=== PATIENT | male | born 1960 | race Caucasian/White ===

== ENCOUNTER 2021-08-29 20:09 | Emergency (ER) | payer OTHER, SELFPAY ==
[2021-08-29 20:21] VITALS: BP 158/95; PULSE 71; RESP 17; TEMP 37.2; O2SAT 99; BMI 30.1
--- NOTE | 2021-08-29 20:41 | DI.RAD.S_ITS ---
PROCEDURE: XR FINGER LT MIN 2V INDICATIONS: cut with barbed wire TECHNIQUE: AP hand, 2 views of the 5th finger(s) acquired. COMPARISON: None. FINDINGS: Bones: No fractures or dislocations. No suspicious bony lesions. Soft tissues: No suspicious soft tissue calcifications. IMPRESSION: No acute fracture. No osseous lesion. If symptoms and/or clinical suspicion for pathology persist, further assessment with repeat, or advanced imaging (e.g., CT, MRI, or bone scan) may be helpful for further assessment. Dictated by: Nicole Man M.D. on 08/29/2021 at 21:09 Approved by: Nicole Man M.D. on 08/29/2021 at 21:10
[2021-08-29] MEDS: TET,DIPH,PERTUSS(ACELL),VAC/PF 0.5 ML SYRINGE IM (22:22)
--- NOTE | 2021-08-29 22:51 | ED.WOUNDLAC ---
HPI - Wound/Laceration General Chief Complaint: Wound/Laceration Stated Complaint: left hand pinky cut (barbwire) Time Seen by Provider: 08/29/21 20:27 Source: patient Mode of arrival: Ambulatory History of Present Illness HPI narrative: Patient is a 61-year-old male who is here for evaluation of injury that he sustained to his left little finger. Patient states that he was working on a wall that had randal wire on top of. He states that he lost his footing and fell back and reached out to try to stop his fall and cut his little finger on the randal wire. He is unsure of his last tetanus shot. He reports no other injuries from the event. He did wash it out prior to arrival. Initially thought it was just a small cut but then as time went on he noticed that it actually extended his entire little finger. He reports no neurologic changes. He is able to flex and extend his finger without discomfort. Related Data Previous Rx's Medication Instructions Recorded cephalexin 500 mg capsule 500 mg PO QID 5 Days #20 cap 08/29/21 Allergies Allergy/AdvReac Type Severity Reaction Status Date / Time No Known Drug Allergies Allergy Verified 08/29/21 20:21 Review of Systems Musculoskeletal Musculoskeletal: Reports system reviewed and no additional complaints, except as documented and Reports as per HPI Integumentary/Breasts Skin/Breast: Reports system reviewed and no additional complaints, except as documented and Reports as per HPI Neurologic Neurologic: Reports system reviewed and no additional complaints, except as documented and Reports as per HPI Hematologic/Lymphatic On Anticoagulants: No Patient History Social History Smoking Status: Never smoker Smoking Status: Never smoker Substance Use Type: does not use Exam Initial Vital Signs Initial Vital Signs: Vital Signs Temperature 98.9 F 08/29/21 20:21 Pulse Rate 71 08/29/21 20:21 Respiratory Rate 17 08/29/21 20:21 Blood Pressure 158/95 H 08/29/21 20:21 Pulse Oximetry 99 08/29/21 20:21 HENMT Head: normal to inspection and normocephalic Skin Other: Patient with a irregular laceration located on the volar aspect of the left little finger. It extends from just distal to the MCP joint across the PIP and the IP joint out to the tip of the finger. There is no nail involvement. Neuro Sensory Exam: no sensory deficits noted Extrem Other: Patient is able to flex and extend had the D IP and PIP and MCP joint both active and passive against resistance left little finger Procedures Laceration Repair Laceration 1: Site: other (Little finger) Side (If applicable): left Size (cm): 6 Description: linear, irregular and clean Depth: simple, single layer Local Anesthetic: lidocaine 1% and with bicarb Amount of anesthesia used (mL): 6 Pre-repair: wound explored, irrigated extensively, deep structures intact and wound margins revised Skin layer closed with: nylon Size (cm): 4-0 Number of sutures: 18 Technique: simple, interrupted Nerve Block Nerve Block 1: Time out performed: Yes Local Anesthetic: lidocaine 1% and with bicarb Amount of anesthesia used (mL): 6 Side: left Nerve Blocks: digital Procedure Successful: Yes Patient Tolerated Procedure: Well and No complications Course Orders Ordered: ED Orders 08/29/21 20:41 XR finger LT min 2V Stat Discontinued Medications Bacitracin (Bacitracin Oint 0.9 Gm Pckt) 1 applic TOP NOW ONE Stop: 08/29/21 23:12 Last Admin: 08/29/21 23:17 Dose: 1 applic Documented by: AURELIANO Cephalexin HCl (Cephalexin 250 Mg Capsule) 500 mg PO NOW ONE Stop: 08/29/21 23:13 Last Admin: 08/29/21 23:17 Dose: 500 mg Documented by: AURELIANO Diphtheria/Tetanus/Acell Pertussis (Tet,Diph,Pertuss(Acell),Vac/Pf 0.5 Ml Syringe) 0.5 ml IM .ONCE ONE Stop: 08/29/21 20:43 Last Admin: 08/29/21 22:22 Dose: 0.5 ml Documented by: AURELIANO Lidocaine/Sodium Bicarbonate (Lido 1%/Sod Bicarb 8.4% (10ml) 10 Ml Syringe) 10 ml INJ NOW ONE Stop: 08/29/21 20:43 Last Admin: 08/29/21 23:08 Dose: 10 ml Documented by: AURELIANO Vital Signs Vital signs: Vital Signs - 8 hr 08/29/21 23:30 Pulse Rate 61 Respiratory Rate 16 Blood Pressure 156/86 H Pulse Oximetry 99 MDM - Wound/Laceration Imaging Data Extremity x-ray #1: Radiologist's Impression: [place] [id number] XRay Report Signed Patient: Bruce Mcpherson MR#: [id number] : 1960 Acct:[id number] Age/Sex: 61 / M Date of Service: 08/29/21 Loc: ED Accession Number: [id number] ?? Procedure: XR finger LT min 2V Ordering Provider: Seymour Bass D.O. PROCEDURE:? XR FINGER LT MIN 2V ? INDICATIONS:? cut with barbed wire ? TECHNIQUE:? AP hand, 2 views of the 5th finger(s) acquired.? ? COMPARISON:? None. ? FINDINGS:? ? Bones:? No fractures or dislocations.? No suspicious bony lesions.? ? Soft tissues:? No suspicious soft tissue calcifications.? ? IMPRESSION:? No acute fracture. No osseous lesion. If symptoms and/or clinical suspicion for pathology persist, further assessment with repeat, or advanced imaging (e.g., CT, MRI, or bone scan) may be helpful for further assessment. ? ? Dictated by: Nicole Man M.D. on 08/29/2021 at 21:09 ? ? Approved by: Nicole Man M.D. on 08/29/2021 at 21:10?? MDM Narrative Medical decision making narrative: Patient reports no other injuries from the event except for the laceration to his left little finger. Patient's tetanus was updated. X-ray shows no signs of fracture nor foreign body. Patient is neurovascularly intact. Is able to flex and extend the little finger. Extensive exploration shows no deep tendon involvement. Digital nerve block was performed. Wound was closed as described above. Given the nature of the wound patient was started on antibiotics. Was given 1st dose here in the emergency department and we will send home with a prescription for the remainder. He was given care instructions and return precautions. He expressed understanding and agreement. Discharge Plan Departure Patient Disposition: Home Clinical Impression: Laceration Instructions: DI for Laceration Repair Activity Restrictions/Additional Instructions: The stitches that were placed to need to be removed in 7-10 days. This can be done by either your primary doctor or the walk-in clinic. Leave the bandage that was placed today in place for the next 24 hours. After that you can take it off. You can continue to use topical antibiotic ointment. After 24 hours you can wash your hand like normal but do not soak your and anything until the wound is healed. It is important that you take the antibiotics as directed. Return to the emergency department for any new or worsening symptoms. Prescriptions: New cephalexin 500 mg capsule 500 mg PO QID 5 Days Qty: 20 0RF
[2021-08-29] MEDS: LIDO 1%/SOD BICARB 8.4% (10ML) 10 ML SYRINGE INJ (23:08)
[2021-08-29] MEDS: BACITRACIN OINT 0.9 GM PCKT 1 APPLIC TOP (23:17)
[2021-08-29] MEDS: cephALEXin 250 MG CAPSULE 500 MG PO (23:17)
[2021-08-29 23:30] VITALS: BP 156/86; PULSE 61; RESP 16; O2SAT 99
== END 2021-08-29 23:30 | disposition home or self-care (01) ==
PROVIDERS: Emergency Provider Emergency Medicine
DX: S61.217A Laceration without foreign body of left little finger without damage to nail, initial encounter (principal); W26.8XXA Contact with other sharp object(s), not elsewhere classified, initial encounter; Z23 Encounter for immunization
CPT/HCPCS: 12002; 64450; 73140; 90471; 99283; 99284; 90715